=== PATIENT | male | born 1940 | race African-American/Black ===

== ENCOUNTER → 2022-04-05 | Outpatient (CLI) | payer MEDICARE ==
[~2022-04-05] MED LIST: AMLODIPINE BES2.5 MG PO; ASPIR 8181 MG PO; ATORVASTATIN CA20 MG PO; BACTRIM 400-801 EACH PO; FLOMAX0.4 MG PO; LISINOPRIL40 MG PO; MYRBETRIQ50 MG PO; PENICILLIN V P500 MG PO; SMZ/TMP PO; TERAZOSIN HCL5 MG PO; VITAMIN D PO; tylenol #3
[2022-04-05 13:06] LABS: BASOPHILS % 0.9 % (0.0-1.0); EOSINOPHILS # (AUTO) 0.1 (0.0-0.4); EOSINOPHILS % 2.2 % (0.0-6.0); HEMATOCRIT 43.2 % (38.2-49.6); HEMOGLOBIN 13.8 g/dL (14.0-18.0); LYMPHOCYTES # (AUTO) 1.3 (1.0-3.2); LYMPHOCYTES % 29.1 % (18.0-39.1); MEAN CORPUSCULAR HGB CONC 31.9 g/dL (31-35); MEAN CORPUSCULAR VOLUME 90.8 fL (81-99); MONOCYTES # (AUTO) 0.3 (0.2-0.8); NEUTROPHILS # (AUTO) 2.7 (2.1-6.9); NEUTROPHILS % 60.6 % (38.7-80.0); PLATELET COUNT 226 x10e3/uL (140-360); RED BLOOD COUNT 4.76 x10e6/uL (4.3-5.7)
[2022-04-05 13:23] LABS: CALCIUM 9.2 mg/dL (8.4-10.2); CREATININE, SERUM 1.47 mg/dL (0.72-1.25)
== END | disposition home or self-care (01) ==
LOC: RAD 11:57 → EDSTATUS 04-09 07:00
PROVIDERS: ATTEND Urology
DX: N35.919 Unspecified urethral stricture, male, unspecified site (principal); U07.1 COVID-19; Z53.8 Procedure and treatment not carried out for other reasons
CPT/HCPCS: 0223U; 36415; 71046; 80048; 85025; 93005

== ENCOUNTER 2022-04-08 22:08 | Observation (INO) | payer MEDICARE ==
[~2022-04-08] VITALS: Ht 167.6 cm; Wt 82.1 kg
[~2022-04-08 22:08] MED LIST changes: -ATORVASTATIN CA20 MG PO; -BACTRIM 400-801 EACH PO; -FLOMAX0.4 MG PO; -PENICILLIN V P500 MG PO; -tylenol #3
[2022-04-08 22:45] LABS: BASOPHILS % 0.7 % (0.0-1.0); EOSINOPHILS # (AUTO) 0.1 (0.0-0.4); EOSINOPHILS % 2.3 % (0.0-6.0); HEMATOCRIT 41.3 % (38.2-49.6); HEMOGLOBIN 13.4 g/dL (14.0-18.0); LYMPHOCYTES # (AUTO) 1.9 (1.0-3.2); LYMPHOCYTES % 32.2 % (18.0-39.1); MEAN CORPUSCULAR HGB CONC 32.4 g/dL (31-35); MEAN CORPUSCULAR VOLUME 89.4 fL (81-99); MONOCYTES # (AUTO) 0.4 (0.2-0.8); MONOCYTES % 6.3 % (4.4-11.3); NEUTROPHILS # (AUTO) 3.5 (2.1-6.9); NEUTROPHILS % 58.3 % (38.7-80.0); PLATELET COUNT 226 x10e3/uL (140-360); RED BLOOD COUNT 4.62 x10e6/uL (4.3-5.7); RED CELL DISTRIBUTION WIDTH 13.9 % (11.7-14.4)
[2022-04-08 22:57] LABS: ANION GAP 14.2 mmol/L (8-16); CALCIUM 8.8 mg/dL (8.4-10.2); CREATININE, SERUM 1.5 mg/dL (0.72-1.25); POTASSIUM 4.2 mmol/L (3.5-5.1)
[2022-04-08] MEDS: SODIUM CHLORIDE 0.9% 1000ML 1,000 ML IV SCH (23:30)
[2022-04-09 02:00] VITALS: BP 140/76
[2022-04-09 03:50] VITALS: BP 140/76
[2022-04-09] MEDS ORDERED: ATORVASTATIN CA20 MG PO (03:52)
[2022-04-09] MEDS ORDERED: FLOMAX0.4 MG PO (03:52)
[2022-04-09 03:54] VITALS: BP 140/76
[2022-04-09 04:02] VITALS: BP 140/76
[2022-04-09 05:52] LABS: BASOPHILS % 0.9 % (0.0-1.0); EOSINOPHILS # (AUTO) 0.2 (0.0-0.4); EOSINOPHILS % 3.7 % (0.0-6.0); HEMATOCRIT 39.6 % (38.2-49.6); HEMOGLOBIN 13.4 g/dL (14.0-18.0); LYMPHOCYTES # (AUTO) 1.4 (1.0-3.2); LYMPHOCYTES % 30.9 % (18.0-39.1); MEAN CORPUSCULAR HEMOGLOBIN 29.3 pg (28-32); MEAN CORPUSCULAR HGB CONC 33.8 g/dL (31-35); MEAN CORPUSCULAR VOLUME 86.5 fL (81-99); MONOCYTES # (AUTO) 0.3 (0.2-0.8); NEUTROPHILS # (AUTO) 2.6 (2.1-6.9); NEUTROPHILS % 57.3 % (38.7-80.0); PLATELET COUNT 205 x10e3/uL (140-360); RED BLOOD COUNT 4.58 x10e6/uL (4.3-5.7)
[2022-04-09 06:23] LABS: CALCIUM 8.7 mg/dL (8.4-10.2); CREATININE, SERUM 1.28 mg/dL (0.72-1.25)
[2022-04-09] MEDS ORDERED: PIPERACILLIN/TAZOBACTAM 3.375 GM VIAL ONE (07:14)
[2022-04-09] MEDS ORDERED: GENTAMICIN 80MG/NS 100 ML 200 ML IV ONE (07:14)
[2022-04-09] MEDS ORDERED: B&O 60MG R/S 60 MG SUPP PR ONE (07:52)
[2022-04-09] MEDS ORDERED: IOPAMIDOL 300MG/ML 50ML INFUS..BTL IV ONE (07:52)
[2022-04-09] MEDS: SODIUM CHLORIDE 0.9% 1000ML 1,000 ML IV SCH (08:30)
[2022-04-09] MEDS ORDERED: B&O 60MG R/S 60 MG SUPP PR PRN (08:45)
[2022-04-09] MEDS ORDERED: PHENAZOPYRIDINE HCL 100 MG TAB PO PRN (08:45)
[2022-04-09] MEDS ORDERED: ACETAMINOPHEN/CODEINE 300MG - 30MG TAB PO PRN (08:45)
[2022-04-09 09:00] VITALS: BP 139/66
[2022-04-09 09:12] VITALS: BP 139/66
[2022-04-09] MEDS ORDERED: BACTRIM 400-801 EACH PO (09:55)
[2022-04-09] MEDS ORDERED: PENICILLIN V P500 MG PO (09:56)
[2022-04-09] MEDS ORDERED: tylenol #3 (09:58)
[2022-04-09] MEDS ORDERED: ONDANSETRON HCL INJ 2MG/ML 2ML 2 MG/ML VIAL ONE (12:37)
[2022-04-09] MEDS ORDERED: POVIDONE IODINE 0.05% 0.05 % ML PO ONE (12:37)
[2022-04-09] MEDS ORDERED: LIDOCAINE HCL 2% LOCAL INJ 5 ML SDV VIAL INJ ONE (12:37)
[2022-04-09] MEDS ORDERED: SEVOFLURANE INHAL SOLN 250 ML PEN BTL ONE (12:37)
[2022-04-09] MEDS ORDERED: PROPOFOL IV EMULSION 10 MG/ML 20 ML VIAL ONE (12:37)
== END 2022-04-09 11:30 | disposition home or self-care (01) ==
LOC: ER 22:14 → ERHOLD 22:20 → MED/SURG 04-09 03:11 → MED/SURG3 04-09 03:26
PROVIDERS: ADMIT Internal Medicine; ATTEND Internal Medicine
DX: N35.919 Unspecified urethral stricture, male, unspecified site (principal); U07.1 COVID-19; N32.3 Diverticulum of bladder; N39.0 Urinary tract infection, site not specified; I12.9 Hypertensive chronic kidney disease with stage 1 through stage 4 chronic kidney disease, or unspecified chronic kidney disease; N18.9 Chronic kidney disease, unspecified
CPT/HCPCS: 36415 ×2; 52005; 52276; 74420; 80048 ×2; 85025 ×2; 87086; 94799; 99284; C1758; C1769; G0378 ×2; J1580; J2001; J2405; J2543; J2704; Q9967

== ENCOUNTER 2022-05-27 15:54 | Emergency (ER) | payer MEDICARE ==
[~2022-05-27] VITALS: Ht 167.6 cm; Wt 84.8 kg
[~2022-05-27 15:54] MED LIST changes: +ATORVASTATIN CA20 MG PO; +BACTRIM 400-801 EACH PO; +FLOMAX0.4 MG PO; +PENICILLIN V P500 MG PO; +tylenol #3
[2022-05-27] MEDS ORDERED: SODIUM CHLORIDE FLUSH 10 ML SYR IV PRN (17:26)
[2022-05-27] MEDS ORDERED: ONDANSETRON HCL INJ 2MG/ML 2ML 2 MG/ML VIAL IV STA (17:26)
[2022-05-27] MEDS ORDERED: Morphine 4mg INJECTION 4 MG/ML INJ IV ONE (17:30)
[2022-05-27] MEDS ORDERED: SODIUM CHLORIDE 0.9% 1000ML 1,000 ML IV ONE (17:30)
[2022-05-27 18:21] LABS: BASOPHILS % 0.3 % (0.0-1.0); EOSINOPHILS % 0.1 % (0.0-6.0); HEMATOCRIT 40.5 % (38.2-49.6); HEMOGLOBIN 13.2 g/dL (14.0-18.0); LYMPHOCYTES # (AUTO) 1.1 (1.0-3.2); LYMPHOCYTES % 10.1 % (18.0-39.1); MEAN CORPUSCULAR HEMOGLOBIN 29.5 pg (28-32); MEAN CORPUSCULAR HGB CONC 32.6 g/dL (31-35); MEAN CORPUSCULAR VOLUME 90.4 fL (81-99); MONOCYTES # (AUTO) 0.5 (0.2-0.8); MONOCYTES % 4.9 % (4.4-11.3); NEUTROPHILS # (AUTO) 9.1 (2.1-6.9); NEUTROPHILS % 84.3 % (38.7-80.0); PLATELET COUNT 248 x10e3/uL (140-360); RED BLOOD COUNT 4.48 x10e6/uL (4.3-5.7); RED CELL DISTRIBUTION WIDTH 13.7 % (11.7-14.4)
[2022-05-27 18:24] LABS: CLARITY,URINE SL CLOUDY (CLEAR); COLOR,URINE YELLOW (YELLOW); KETONES,URINE NEGATIVE (NEGATIVE); LEUKOCYTE ESTERASE ,URINE SMALL (NEGATIVE); NITRITE,URINE POSITIVE (NEGATIVE); PROTEIN,URINE DIPSTICK NEGATIVE (NEGATIVE); URINE UROBILINOGEN 0.2 mg/dL (0.2 - 1)
[2022-05-27 18:26] LABS: AMPHETAMINES SCREEN,URINE NEGATIVE (NEGATIVE); BENZODIAZEPINES SCREEN,URINE NEGATIVE (NEGATIVE); PHENCYCLIDINE SCREEN,URINE NEGATIVE (NEGATIVE)
[2022-05-27 18:31] LABS: INR 0.95; PROTHROMBIN TIME 13.5 seconds (11.9-14.5)
[2022-05-27 18:32] LABS: PARTIAL THROMBOPLASTIN TIME 32.1 seconds (23.8-35.5)
[2022-05-27 18:41] LABS: ALBUMIN 3.7 g/dL (3.5-5.0); ALBUMIN/GLOBULIN RATIO 1.2 (0.8-2.0); ANION GAP 14.3 mmol/L (8-16); CALCIUM 9.1 mg/dL (8.4-10.2); CREATININE, SERUM 1.41 mg/dL (0.72-1.25); POTASSIUM 4.3 mmol/L (3.5-5.1)
[2022-05-27 18:44] LABS: BACTERIA,URINE MANY /HPF; WBC,URINE (MAN) 21-50 /HPF (0-5)
[2022-05-27 18:45] LABS: EPITHELIAL CELLS,URINE RARE /LPF; RBC,URINE 0-5 /HPF (0-5)
[2022-05-27] MEDS ORDERED: CEFTRIAXONE 1 GM VIAL ONE (19:24)
[2022-05-27] MEDS ORDERED: CEFDINIR300 MG PO (20:26)
[2022-05-27] MEDS ORDERED: NAPROXEN375 MG PO (20:26)
[2022-05-27 20:29] VITALS: BP 155/93
== END 2022-05-27 20:37 | disposition home or self-care (01) ==
LOC: ER 16:22
DX: N50.811 Right testicular pain (principal); N43.3 Hydrocele, unspecified; N30.90 Cystitis, unspecified without hematuria; M54.50 Low back pain, unspecified; I10 Essential (primary) hypertension; E78.5 Hyperlipidemia, unspecified; Z86.73 Personal history of transient ischemic attack (TIA), and cerebral infarction without residual deficits
CPT/HCPCS: 36415; 71045; 74176; 76870; 80053; 80307; 81001; 83690; 84484; 85025; 85610; 85730; 93005; 93976; 99284; J0696; J2270; J2405; J7030

== ENCOUNTER → 2023-06-07 | Day surgery (SDC) | payer MEDICARE ==
[2023-06-06 11:24] LABS: BASOPHILS % 0.8 % (0.0-1.0); EOSINOPHILS # (AUTO) 0.1 (0.0-0.4); EOSINOPHILS % 2.1 % (0.0-6.0); HEMATOCRIT 44.5 % (38.2-49.6); HEMOGLOBIN 14.9 g/dL (14.0-18.0); LYMPHOCYTES # (AUTO) 1.4 (1.0-3.2); LYMPHOCYTES % 37.2 % (18.0-39.1); MEAN CORPUSCULAR HEMOGLOBIN 29.9 pg (28-32); MEAN CORPUSCULAR HGB CONC 33.5 g/dL (31-35); MEAN CORPUSCULAR VOLUME 89.4 fL (81-99); MONOCYTES # (AUTO) 0.2 (0.2-0.8); MONOCYTES % 6.1 % (4.4-11.3); NEUTROPHILS % 53.5 % (38.7-80.0); PLATELET COUNT 231 x10e3/uL (140-360); RED BLOOD COUNT 4.98 x10e6/uL (4.3-5.7); WHITE BLOOD COUNT 3.79 x10e3/uL (4.8-10.8)
[2023-06-06 11:44] LABS: ANION GAP 14.2 mmol/L (8-16); CALCIUM 9.3 mg/dL (8.4-10.2); CREATININE, SERUM 1.42 mg/dL (0.72-1.25); POTASSIUM 5.2 mmol/L (3.5-5.1)
[~2023-06-07] MED LIST changes: +BUPIVACAINE HCL 0.5% INJ 30 ML VIAL INJ ONE; +CEFDINIR300 MG PO; +DEXAMETHASONE SOD PHOS INJ 4 MG/ML SDV ONE; +FENTANYL CITRATE/PF 100MCG/2 ML INJ ONE; +GENTAMICIN 80MG/NS 100 ML 200 ML IV ONE; +GLYCOPYRROLATE INJ 0.2 MG/ML VIAL ONE; +LACTATED RINGER'S 1,000 ML ONE; +LIDOCAINE 1% W/EPINEPHRINE 20 ML VIAL ONE; +LIDOCAINE HCL 2% LOCAL INJ 5 ML SDV VIAL INJ ONE; +NAPROXEN375 MG PO; +ONDANSETRON HCL INJ 2MG/ML 2ML 2 MG/ML VIAL ONE; +PREVAGIN PO; +PROPOFOL IV EMULSION 10 MG/ML 20 ML VIAL ONE; +SEVOFLURANE INHAL SOLN 250 ML PEN BTL ONE; +VITAMIN D3 COM1 EACH PO
[2023-06-07 15:51] VITALS: TEMP 97.5
[2023-06-07 17:05] VITALS: BP 162/79; PULSE 62; RESP 16; O2SAT 96
== END | disposition home or self-care (01) ==
LOC: OR 10:19
PROVIDERS: ATTEND Urology
DX: N43.3 Hydrocele, unspecified (principal); N35.912 Unspecified bulbous urethral stricture, male; N40.1 Benign prostatic hyperplasia with lower urinary tract symptoms; N13.8 Other obstructive and reflux uropathy; N32.3 Diverticulum of bladder; N32.89 Other specified disorders of bladder; N39.0 Urinary tract infection, site not specified; I12.9 Hypertensive chronic kidney disease with stage 1 through stage 4 chronic kidney disease, or unspecified chronic kidney disease; N18.9 Chronic kidney disease, unspecified; Z01.810 Encounter for preprocedural cardiovascular examination; Z01.812 Encounter for preprocedural laboratory examination; Z01.818 Encounter for other preprocedural examination; Z79.899 Other long term (current) drug therapy; Z86.73 Personal history of transient ischemic attack (TIA), and cerebral infarction without residual deficits; Z87.891 Personal history of nicotine dependence
CPT/HCPCS: 36415; 52281; 55040; 71046; 80048; 85025; 88304; 93005; J0690; J1100; J1580; J2001; J2405; J2704; J3010; J7121